=== PATIENT | female | born 1940 | race Caucasian/White ===

== ENCOUNTER 2017-04-29 15:09 | Emergency (ER) | payer OTHER ==
[2017-04-29 15:13] VITALS: TEMP 97.9
--- NOTE | 2017-04-29 17:15 | EDPHY ---
H & P Stated Complaint: fall 04/28, Right foot pain Time Seen by Provider: 04/29/17 17:14 HPI/ROS: HPI: This is a 68-year-old female presents with Chief Complaint: fall 04/28, Right foot pain Location: Right foot Quality: Swelling and pain Duration: Since Friday Signs and Symptoms: No bleeding, no radiation, no numbness, no weakness, no tingling, no LOC, + decreased range of motion Timing: Acute, slowly improving Severity: Moderate Context: Patient reports that she was at her home barefoot and walking down the stairs when she did realize that there was 1 more step and tripped and fell directly onto the floor and feeling immediate right foot pain. She is unsure of the mechanism of her injury. Denies hitting her head/LOC. She has been applying ice pack with mild relief. She also reports that she has been having right knee problems for the last couple months; followed by a chiropractor without any improvement and now since accident she complains of inferior lateral knee pain that is worsened with sitting and squatting. Modifying Factors: Ice packs Comment: ROS: see HPI Constitutional: No fever, no chills, no weight loss Eyes: No blurred vision Respiratory: No shortness of breath, no cough Cardiovascular: No chest pain Gastrointestinal: No nausea, no vomiting no diarrhea Genitourinary: No dysuria Extremities: No myalgias Neurologic: No weakness, no numbness Skin: No rashes Hematologic: No bruising, no bleeding MEDICAL/SURGICAL/SOCIAL HISTORY: Medical history: Hypothyroidism Surgical history: Denies Social history: . CONSTITUTIONAL: Pleasant elderly female, accompanied by , awake and alert, no obvious distress HEENT: Atraumatic and normocephalic, PERRL, EOMI. Tympanic membranes clear. Oropharynx clear, no exudate and moist pink mucosa. Airway patent. No lymphadenopathy. No meningismus. Cardiovascular: Normal S1/S2, regular rate, regular rhythm, without murmur rub or gallop. PULMONARY/CHEST: Symmetrical and nontender. Clear to auscultation bilaterally. Good air movement. No accessory muscle usage. ABDOMEN: Soft, nondistended, nontender, no rebound, no guarding, no peritoneal signs, no masses or organomegaly. No CVAT. EXTREMITIES: 2/2 pulses, Right Ankle; Plantar flexion to 50, dorsiflexion to 20. Foot inversion to 35 degree. No Anterior talofibular ligament. No Calcaneofibular ligament, no posterior talofibular ligament, no posterior inferior tibiofibular ligament. Achilles tendon intact. Right KNEE: no effusion , no medial joint line tenderness, + lateral joint line tenderness, full extension to 180, flexion to 120, no pain with varus and valgus exam. No pain with anterior drawer test. No pain with posterior drawer test. Mild swelling/ecchymosis noted at the 2nd through 5th metatarsals. Toes have full flexion and extension. Light touch sensation intact. no deformities, no clubbing, no cyanosis or edema. NEUROLOGICAL: no focal neuro deficits. GCS 15. SKIN: Warm and dry, no erythema. no rash. Good capillary refill. Source: Patient Exam Limitations: No limitations - Personal History Current Tetanus Diphtheria and Acellular Pertussis (TDAP): No - Medical/Surgical History Hx Asthma: No Hx Chronic Respiratory Disease: No Hx Diabetes: No Hx Cardiac Disease: No Hx Renal Disease: No Hx Cirrhosis: No Hx Alcoholism: No Hx HIV/AIDS: No Hx Splenectomy or Spleen Trauma: No Other PMH: Anthony - Social History Smoking Status: Former smoker Constitutional: Initial Vital Signs Temperature (C) 36.6 C 04/29/17 15:10 Heart Rate 89 04/29/17 15:10 Respiratory Rate 18 04/29/17 15:10 Blood Pressure 122/99 H 04/29/17 15:10 O2 Sat (%) 94 04/29/17 15:10 O2 Delivery Mode Room Air Allergies/Adverse Reactions: Sulfa (Sulfonamide Antibiotics) Allergy (Unknown, Verified 02/18/13 18:11) meperidine HCl [From Demerol] Allergy (Verified 02/18/13 18:11) Home Medications: Medication Instructions Recorded NK [No Known Home Meds] 04/29/17 Medical Decision Making - Diagnostics Imaging Results: Imaging Impressions Foot X-Ray 04/29/17 16:13 Impression: 1. Small needle fragment in second toe. 2. Osteoarthritis of first MTP joint. Knee X-Ray 04/29/17 17:26 Impression: 1. No acute osseous abnormalities. 2. Tricompartmental osteoarthrosis, increased since 2007 and most apparent in the medial compartment. 3. 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 Procedures: Procedure: Splint placement. A right walking boot was applied by the emergency therapy technician. After application of the splint I returned and re-examined the patient. The splint was adequately immobilizing the joint and distal to the splint the patient's circulation and sensation was intact. ED Course/Re-evaluation: Right foot x-ray, right knee x-ray, oral medications ordered. Right foot x-ray my read shows no fracture/dislocation. Radiology crutches questions small needle fragment in second toe. Clinically there is no signs of erythema/warmth/entrance point and patient has no history of stepping on something or feeling pain prior to the accident Right knee x-ray my read shows mild tricompartmental degenerative changes, as well as chondrocalcinosis noted No signs of neurovascular compromise/tenting of skin/compartment syndrome/ extremities and joints examined above and below area of concern and are neurovascularly intact. Per patient request, given walking boot. Advised to follow up with Orthopedics. Differential Diagnosis: Differential diagnosis includes but not limited to fracture, contusion, nerve injury, ligament injury. Knee injury while [] including but not limited to fracture, ACL injury, contusion, muscular strain, and meniscus injury. Departure - Departure Disposition: Home, Routine, Self-Care Clinical Impression: Chondrocalcinosis Foot contusion Qualifiers: Encounter type: initial encounter Laterality: right Qualified Code(s): S90.31XA - Contusion of right foot, initial encounter Knee osteoarthritis Qualifiers: Osteoarthritis type: primary Laterality: right Qualified Code(s): M17.11 - Unilateral primary osteoarthritis, right knee Condition: Good Instructions: Foot Contusion (ED), Osteoarthritis (ED) Additional Instructions: Wear the walking boot until pain free or seen by Orthopedics. Take ibuprofen 600 mg every 6-8 hours with food as needed for pain and inflammation. Apply ice for 30 minutes at a time; 2-3 times per day for the next 1-2 days. Follow up with Orthopedics in 5-7 days at which time they will evaluate and recommend with you if conservative management versus surgery is indicated. The x-rays obtained in the emergency department today demonstrate no evidence of an obvious fracture. Sometimes fractures are not obvious on the initial set of x-rays performed in the ED. For this reason, you should have repeat x-rays performed in 7-10 days if you are having any pain exclude the possibility of an occult fracture. Referrals: NUNU BARKLEY [Primary Care Provider] - As per Instructions Timothy Baker MD [Medical Doctor] - As per Instructions
[2017-04-29 18:14] VITALS: BP 146/88; PULSE 77; RESP 16; O2SAT 95
== END 2017-04-29 18:31 | disposition home or self-care (01) ==
DX: S90.31XA Contusion of right foot, initial encounter (principal); M17.11 Unilateral primary osteoarthritis, right knee; M11.261 Other chondrocalcinosis, right knee; Z87.891 Personal history of nicotine dependence; W01.0XXA Fall on same level from slipping, tripping and stumbling without subsequent striking against object, initial encounter; Y99.8 Other external cause status
CPT/HCPCS: 73564; 73630; 99283; L4386

== ENCOUNTER 2017-07-12 11:28 | Emergency (ER) | payer OTHER ==
--- NOTE | 2017-07-12 12:42 | EDPHY ---
H & P Stated Complaint: "Flu" sxs that reolved;now has painful neck and fever HPI/ROS: CHIEF COMPLAINT: Neck / shoulder pain HISTORY OF PRESENT ILLNESS: This patient is a 76 year old female with history of hypothyroidism arriving with her complaining of headache, body aches, and fever. Beginning 06/27, she had suspected flu symptoms for eight days. She comes from a naturopathic family and does not generally take medication; no formal testing was done.. Her symptoms included fever, cough, sore throat, and sneezing. She did not have muscle aches, vomiting, or diarrhea during that time. Following this, she felt better for three days. Yesterday, her fever returned and she gradually developed a "pounding" headache as well as pain and stiffness in her neck. She feels pain and a "burning" sensation in her neck and as if she cannot turn her head from side to side. She endorses a similar burning sensation throughout her body. She endorses pain along the lateral aspect of her left leg below the knee as well. Endorses lack of appetite. She has had fever (temperatures below one hundred, but she normally has a lower than normal temperature, states that temperature of 99F is a fever for her--she recorded a temperature of over one hundred yesterday). She does not take OTC medications, including Tylenol or Advil, due to liver sensitivity and adverse side effects. She denies nausea, vomiting, diarrhea, chest pain, abdominal pain, dysuria, or other associated symptoms. She has not had confusion, vision changes, weakness, or numbness. REVIEW OF SYSTEMS: A ten point review of systems was performed and is negative with the exception of the items mentioned in the HPI. Past medical history: 1. Hypothyroidism Past surgical history: 1. Appendectomy 2. Tonsillectomy 3. Cholecystectomy Family history: Noncontributory. Social history: at bedside. PCP Dr. Arriaga. Nonsmoker. No alcohol use. Originally from [facility]. General Appearance: Alert. Vital signs reviewed. Blood pressure 132/95 at triage. Afebrile. Eyes: Pupils unequal, 1mm larger on right than left. Both react normally to light. No conjunctival injection, no discharge. Anicteric. ENT, Mouth: Mucous membranes are moist, no oropharyngeal erythema or edema. Neck: No lymphadenopathy, supple. No midline tenderness. She reports pain with AROM of neck--pain is in the trapezius muscles bilaterally. No palpable muscle spasm. Respiratory: Lungs are clear to auscultation; no wheezes, rales, or rhonchi. Cardiovascular: Regular rate and rhythm; no murmur, rub, or gallop. Gastrointestinal: Abdomen is soft and nontender, no masses or organomegaly, bowel sounds normal. Skin: Warm and dry, no rashes on exposed skin, normal color. Back: Nontender to palpation over the thoracolumbar spine. No CVAT. Extremities: No lower extremity edema, no calf tenderness or swelling. Neurological: Alert and oriented. Moving all four extremities easily and equally. Cranial nerves II through XII are examined and are intact (visual acuity not tested). Slight anisacoria, R pupil about 1 mm larger than left. Both pupils reactive to light. Strength is 5 over 5 bilaterally with testing of all major motor groups. Sensation is intact to light touch over all 4 extremities. Deep tendon reflexes are 2+ in the biceps and knees bilaterally. [id number] is performed accurately. Psychiatric: Normal affect. - Personal History Current Tetanus Diphtheria and Acellular Pertussis (TDAP): Unsure - Medical/Surgical History Hx Asthma: No Hx Chronic Respiratory Disease: No Hx Diabetes: No Hx Cardiac Disease: No Hx Renal Disease: No Hx Cirrhosis: No Hx Alcoholism: No Hx HIV/AIDS: No Hx Splenectomy or Spleen Trauma: No Other PMH: Anthony - Social History Smoking Status: Former smoker Constitutional: Initial Vital Signs Temperature (C) 37.3 C 07/12/17 11:32 Heart Rate 84 07/12/17 11:32 Respiratory Rate 16 07/12/17 11:32 Blood Pressure 132/95 H 07/12/17 11:32 O2 Sat (%) 97 07/12/17 11:32 O2 Delivery Mode Room Air Allergies/Adverse Reactions: Sulfa (Sulfonamide Antibiotics) Allergy (Mild, Verified 07/12/17 11:31) rashes meperidine HCl [From Demerol] Allergy (Unknown, Verified 07/12/17 11:31) Home Medications: Medication Instructions Recorded Naturthroid 07/12/17 Medical Decision Making - Diagnostics Imaging: Discussed imaging studies w/ house calls nurse practitioner Radiologist ED Course/Re-evaluation: This 76 year old female presets with two day history of headache, neck pain, and fever. The only abnormality on her neuro exam is mild anisacoria, which I suspect is baseline for her. Cervical spine is not tender on exam. The patient is wary of procedures and medications due to her naturopathic tendencies. We discussed laboratory studies, head CT, and spinal tap for evaluation of symptoms. Discussed risks and benefits of each of these procedures. She declines any pain medication at this time. Plan for labs including CBC, BMP. Plan for CT head. The patine has history of hypothyroidism for which she takes a naturopathic thyroid medicine. She states her normal temperature is 95.5 degrees, but yesterday, fever of 101 degrees. Temperature 37.3 at triage, repeat temp in room is the same. 13:51 The patient has an elevated WBC of 13,000. Flu negative. 14:[address] Mendoza, radiologist. Head CT negative for acute processes. 14:43 Reassessed patient. Her headache and neck pain have both improved markedly. She is now nodding her head up and down and turning side to side without difficulty. We discussed lumbar puncture, but given her improvement I do not think that LP to assess for meningitis is warranted. She accepts 15mg IV Toradol for pain relief at this time. 15:58 Patient is feeling better and would like to go home. Plan to discharge in good condition. She is feeling much better with no neck pain or headache. Follow up and return precautions discussed. She is comfortable with this plan. I do not suspect meningitis at this time, given her significant improvement without treatment. She is flu negative. Head Ct does not indicate a mass or bleed. Headache is not migranous and she has no n/o migraines. I suspect muscle tension head and neck pain. - Data Points Laboratory Results: Laboratory Results 07/12/17 12:30 07/12/17 12:30 Medications Given: Discontinued Medications Ketorolac Tromethamine (Toradol) 15 mg IVP ONCE ONE Stop: 07/12/17 14:59 Last Admin: 07/12/17 15:03 Dose: 15 mg Departure - Departure Disposition: Home, Routine, Self-Care Clinical Impression: Viral syndrome Headache Qualifiers: Headache type: tension-type Headache chronicity pattern: acute headache Intractability: not intractable Qualified Code(s): G44.209 - Tension-type headache, unspecified, not intractable Condition: Good Instructions: Acute Headache (ED), Viral Syndrome (ED) Additional Instructions: 1. Follow up with your primary care physician for further evaluation. 2. Return to the emergency department for high fever, severe headache or neck pain, difficulty breathing, abdominal pain, uncontrollable vomiting, numbness or weakness, rash, or other worsening of condition. Referrals: Gwen Arriaga MD [Primary Care Provider] - As per Instructions Report Scribed for: Shanthi Barahona Report Scribed by: Ayla Alves Date of Report: 07/12/17 Time of Report: 14:23 Physician Review and Approval Statement: 07/13/17 07:42 Portions of this chart were written by a medical orderly. I personally performed the HPI, PE, MDM. I have reviewed the chart and agree with the documentation.
[2017-07-12 13:34] LABS: PLATELET COUNT 256 10^3/uL (150-400)
[2017-07-12] MEDS ORDERED: KETOROLAC 15 MG/1 ML SDV IVP ONE (14:58)
[2017-07-12 16:12] VITALS: BP 119/79; PULSE 94; RESP 14; TEMP 99; O2SAT 93
== END 2017-07-12 16:14 | disposition home or self-care (01) ==
DX: G44.209 Tension-type headache, unspecified, not intractable (principal); B34.9 Viral infection, unspecified; Z87.891 Personal history of nicotine dependence
CPT/HCPCS: 70450; 96374; 99285; J1885

== ENCOUNTER → 2017-09-04 | Outpatient (CLI) | payer OTHER | LOC: FIMAGING 14:23 | PROVIDERS: ATTEND Family Medicine | DX: Z12.31 Encounter for screening mammogram for malignant neoplasm of breast (principal) ==